=== PATIENT | female | born 1970 | race Caucasian/White ===

== ENCOUNTER 2024-05-08 05:21 | Emergency (ER) | payer SELFPAY ==
[2024-05-08 05:22] VITALS: BP 177/109
[2024-05-08] MEDS: PROTONIX IV 40 MG IV (05:41)
--- NOTE | 2024-05-08 05:41 | ED.GENMED ---
History of Present Illness
General
Chief Complaint: Blood Pressure Problem
Source: patient
Exam Limitations: none
Time Seen by Provider: 05/08/24 05:32
Nursing documentation reviewed up to this point in time: agreed with
Travel History
Have you had any contact with someone who has COVID-19?: No
Do you have any symptoms of coronavirus? Fever > 100 degrees, chills, cough, shortness of breath, sore throat, loss of taste or smell, muscle aches, or headache?: No
History of Present Illness
History of Present Illness:
53 yo female presents to elevated blood pressure. When she lays down she gets reflux. She drinks 16 beers a day.
Past History
Past History
ED Past Medical History: GERD, HTN and Hypercholesterolemia
ED Past Surgical History: Other (Nephrectomy)
Social History
Alcohol: Chronic alcoholic
Drug: None
Living: alone
Review of Systems
Review of Systems
Allergies reviewed?: Yes
All Other Systems: Not applicable
Constitutional: Reports no symptoms
EENT: Reports no symptoms
Respiratory: Reports no symptoms
Cardiac: Reports no symptoms
ABD/GI: Reports no symptoms
: Reports no symptoms
Musculoskeletal: Reports no symptoms
Skin: Reports no symptoms
Neurological: Reports no symptoms
Endocrine: Reports no symptoms
Hematologic/Lymphatic: Reports no symptoms
Psychiatric: Reports no symptoms
Phy Exam
Physical Exam
Physical Exam:
Physical Exam
General: Afebrile, blood pressure 177/109
Neck: supple. no meningeal signs. normal posterior pharynx
Heart: s1/s2 regular rate and rhythm, no murmur. equal radial
pulses.
HEENT: Pupils equal round reactive to light, EOMI
Lungs: no acute respiratory distress. clear bilaterally
Abdomen: normal bowel sounds. not tender. no CVAT
Neuro: alert and oriented. no focal neurological deficits cranial nerves II through XII intact
Skin: no rash
Psychiatric: well kept. interactive and cooperative
Extremities: no edema. no calf tenderness. negative homans. good distal pulses
Course
Orders/Labs/Results
Orders:
Orders
05/08/24 05:37
EKG- Treatment ONCE
Ondansetron Injectable [Zofran] 4 mg IV NOW STA
Pantoprazole [Protonix IV] 40 mg IV NOW STA
Quetiapine Fumarate [Seroquel] 50 mg PO NOW STA
05/08/24 05:39
Electrocardiogram (*1) Urgent
Reason for Study: Hypertension, Benign
05/08/24 05:44
Complete Blood Count/With Diff Urgent
Comprehensive Metabolic Panel Urgent
05/08/24 06:03
HydrALAZINE [Apresoline] 10 mg IV NOW STA
05/08/24 06:15
Labetalol HCl [Trandate] 20 mg IV NOW STA
Abnormal Lab Results
05/08/24
05:44
RBC 4.11 L 10^6/uL
(4.20-5.40)
MCH 34.5 H pg
(27.0-31.0)
Abs Immat Gran (auto) 0.1 H 10^3/uL
(0-0.05)
Absolute Neuts (auto) 9.0 H 10^3/uL
(1.4-6.5)
Absolute Lymphs (auto) 1.1 L 10^3/uL
(1.2-3.4)
Immature Gran % 0.6 H %
(0-0.5)
Neutrophils % 84.0 H %
(42.2-75.2)
Lymphocytes % 10.5 L %
(20.5-51.1)
Chloride 111 H mmol/L
(98-107)
Creatinine 1.1 H mg/dL
(0.6-1.0)
AST 42 H U/L
(14-36)
Albumin 5.2 H g/dl
(3.5-5.0)
05/08/24 05:44
05/08/24 05:44
Vital Signs
Initial and Last Documented VS:
Initial Vital Signs
Temp Pulse Resp BP Pulse Ox
98.1 F 91 19 177/109 95
05/08/24 05:22 05/08/24 05:22 05/08/24 05:22 05/08/24 05:22 05/08/24 05:22
Last Documented Vital Signs
Temp Pulse Resp BP Pulse Ox
98.1 F 84 19 182/124 95
05/08/24 05:22 05/08/24 06:19 05/08/24 05:34 05/08/24 06:19 05/08/24 05:22
MDM/Problems Addressed
Differential Diagnosis Includes:
Hypertension, renal insufficiency
MDM/Problems Addressed:
53-year-old female with hypertensive urgency. No signs of renal failure. GFR 59. Blood pressure improved after labetalol. Stable for incarceration.
Chronic conditions affecting care: HTN
Acute Exacerbation and/or Progression of Chronic Illness: HTN
*Pulse Oximetry
Patient hypoxic: no
*EKG
Interpreted by ED Provider?: Yes
EKG Intrepretation Date: 05/08/24
EKG Intrepretation Time: 06:12
Interpretation: abnormal
Comparison EKG: no comparison EKG present
Heart Rate: 75
Rate: normal
Rhythm: sinus
[place]: normal axis
Interval: normal interval
QRS Pattern: normal QRS
Ischemia: no ischemia
*Managed Care Liaison Interpretation
Rate: normal
Interpretation: normal
Heart Rate: 77
Rhythm: sinus
*Critical Care Note
Total Time (30-74mins, 75-104mins- exclusive of procedures): 30
comment:
Critical care statement: A total of 30 minutes of critical care time was provided for this patient. This includes management of unstable vital signs, evaluation of the patient at bedside, reviewing the patient's pertinent medical records, discussion
with consultants, review of old EKGs and review of pertinent medical records. This time with separate from time utilized to perform the aforementioned documented procedures
Patient Management
Social determinants of health affecting care: Living situation and Substance abuse
Escalation/DeEscalation of care consider admission/obs:
Admit not indicated
ED Attending Note
-
Portions of this chart may have been created with voice recognition software.� Occasional wrong word or��sound alike� substitutions may have occurred due to the inherent limitations of voice recognition software.
Discharge Plan
Departure
Patient with high blood pressure during this ER visit?: Yes
Condition: Good
Discharge Problem:
Hypertensive urgency
Instructions: High Blood Pressure (DC)
Prescriptions:
New
labetalol 100 mg tablet
100 mg PO BID Qty: 60 0RF
Interventions
Interventions:
*Risk Screen - Suicide Last Done: 05/08/24 05:22
*General Assessment Last Done: 05/08/24 05:22
*Neglect/Abuse Screening Last Done: 05/08/24 05:22
ED- Fall Risk Assessment Last Done: 05/08/24 05:30
*ED COVID-19 Vaccine History Last Done: 05/08/24 05:22
ED- Cardiac Assessment Last Done: 05/08/24 05:30
ED- Neurological Assessment Last Done: 05/08/24 05:30
ED- Pulmonary Assessment Last Done: 05/08/24 05:30
Discharge Date and Time
Print Language: LUXEMBOURGER
[2024-05-08] MEDS: ZOFRAN 4 MG IV (05:42)
[2024-05-08 05:50] LABS: % Basophils 0.5 % (0-2); % Eosinophils 0.4 % (0-6); % Immature Granulocytes 0.6 % (0-0.5); % Lymphocytes 10.5 % (20.5-51.1); Absolute Basophils 0.1 10^3/uL (0-0.2); Absolute Immature Granulocytes 0.1 10^3/uL (0-0.05); Absolute Lymphocytes 1.1 10^3/uL (1.2-3.4); Absolute Monocytes 0.4 10^3/uL (0.1-0.6); Hematocrit 38.5 % (37.0-47.0); Hemoglobin 14.2 g/dL (12.0-16.0); Mean Corp Hgb Conc. 36.9 g/dL (33.0-37.0); Mean Corpuscular Hgb 34.5 pg (27.0-31.0); Mean Corpuscular Volume 93.7 fL (81.0-99.0); Nucleated Red Blood Cells % 0 %; Platelet Count 170 10^3/uL (130-400); Red Blood Cell Count 4.11 10^6/uL (4.20-5.40); Red Cell Dist. Width 12.3 % (11.5-14.5); White Blood Cell Count 10.7 10^3/uL (4.8-10.8)
[2024-05-08] MEDS: SEROQUEL 50 MG PO (06:00)
[2024-05-08 06:05] LABS: ALT (SGPT) 20 U/L (0-35); AST (SGOT) 42 U/L (14-36); Albumin 5.2 g/dl (3.5-5.0); Alkaline Phosphatase 87 U/L (38-126); Blood Urea Nitrogen 14 mg/dl (7-17); Calcium 9.6 mg/dl (8.4-10.2); Carbon Dioxide 23 mmol/L (22-30); Chloride 111 mmol/L (98-107); Glucose 98 mg/dl (70-99); Potassium 4.5 mmol/L (3.5-5.1); Sodium 145 mmol/L (135-145); Total Bilirubin 0.7 mg/dl (0.2-1.3); eGFR 59.34
[2024-05-08] MEDS: TRANDATE 20 MG IV (06:19)
[2024-05-08 06:35] VITALS: BP 169/114
[2024-05-08 07:00] VITALS: BP 154/100
== END 2024-05-08 08:11 | disposition home or self-care (01) ==
LOC: EMR 05:21
PROVIDERS: EMERGENCY PHYSICIAN Emergency Medicine
DX: I16.0 Hypertensive urgency (principal); K21.9 Gastro-esophageal reflux disease without esophagitis; I10 Essential (primary) hypertension; E78.00 Pure hypercholesterolemia, unspecified; Z90.5 Acquired absence of kidney
CPT/HCPCS: 99283; 96374; 96375; 80053; 85025; 93005

== ENCOUNTER 2025-11-01 19:50 | Emergency (ER) | payer OTHER, SELFPAY ==
[2025-11-01 19:53] VITALS: BP 120/63
[2025-11-01 20:00] VITALS: BP 120/63
[2025-11-01 20:12] LABS: Hematocrit 31.9 % (37.0-47.0); Hemoglobin 11.2 g/dL (12.0-16.0); Mean Corp Hgb Conc. 35.1 g/dL (33.0-37.0); Mean Corpuscular Volume 93.8 fL (81.0-99.0); Nucleated Red Blood Cells % 0 %; Platelet Count 127 10^3/uL (130-400); Red Cell Dist. Width 11.9 % (11.5-14.5)
[2025-11-01 20:29] LABS: ALT (SGPT) 118 U/L (0-35); AST (SGOT) 261 U/L (14-36); Albumin 4.2 g/dl (3.5-5.0); Alkaline Phosphatase 83 U/L (38-126); Blood Urea Nitrogen 22 mg/dl (7-17); Calcium 9.1 mg/dl (8.4-10.2); Carbon Dioxide 30 mmol/L (22-30); Chloride 100 mmol/L (98-107); Glucose 128 mg/dl (70-99); Potassium 2.8 mmol/L (3.5-5.1); Sodium 134 mmol/L (135-145); Total Protein 6.6 g/dl (6.3-8.2); eGFR > 60.00
[2025-11-01 21:00] VITALS: BP 99/69
[2025-11-01 22:00] VITALS: BP 97/66
--- NOTE | 2025-11-01 23:03 | ED.GENMED ---
History of Present Illness
General
Chief Complaint: Change in Mental Status
Time Seen by Provider: 11/01/25 20:14
History of Present Illness
History of Present Illness:
54-year-old female presents with correctional facility officers from [facility] due to poor responsiveness. Has been incarcerated for less than an hour and was reportedly exhibiting signs of alcohol withdrawal thus was
administered diphenhydramine, Seroquel, and Klonopin before becoming less responsive. On arrival to the ED she is somnolent and with sonorous respirations, minimally responsive.
Past History
Past History
ED Past Medical History: GERD, HTN and Hypercholesterolemia
ED Past Surgical History: Other (Nephrectomy)
Social History
Alcohol: Chronic alcoholic
Drug: None
Living: alone
Review of Systems
Review of Systems
Allergies reviewed?: Yes
All Other Systems: ROS reviewed and negative except as documented in HPI and ROS
Phy Exam
Physical Exam
Physical Exam:
GEN: Somnolent, groans to painful tactile stimuli and withdraws to pain
HEENT: Oral mucosa moist, no scleral icterus
Cardiac: Regular rate
Lung: No respiratory distress, no tachypnea
MSK: No gross deformity or injuries
Skin: Good color, no pallor or jaundice, no rashes
Neuro: Somnolent, withdraws to pain, moves all extremities
Psych: Calm, cooperative
Course
Orders/Labs/Results
Orders:
Orders
11/01/25 20:02
Alcohol Urgent
Complete Blood Count/With Diff Urgent
Comprehensive Metabolic Panel Urgent
11/01/25 20:51
Add On- LAB Urgent
Tests Added?: alcohol
11/01/25 21:28
CT Head W/o Iv Contrast Urgent
Comment:
Reason For Exam: altered mental status
11/01/25 21:54
Fentanyl, Urine Urgent
Urine Drug Abuse Screen Urgent
Date Specimen was Collected: 11/01/25
Time Specimen was Collected: 21:39
11/01/25 23:07
Potassium Chloride [KCl] 80 meq PO NOW STA
Abnormal Lab Results
11/01/25 11/01/25
20:02 21:54
RBC 3.40 L 10^6/uL
(4.20-5.40)
Hgb 11.2 L g/dL
(12.0-16.0)
Hct 31.9 L %
(37.0-47.0)
MCH 32.9 H pg
(27.0-31.0)
Plt Count 127 L 10^3/uL
(130-400)
Absolute Lymphs (auto) 0.7 L 10^3/uL
(1.2-3.4)
Neutrophils % 75.8 H %
(42.2-75.2)
Lymphocytes % 13.3 L %
(20.5-51.1)
Sodium 134 L mmol/L
(135-145)
Potassium 2.8 L mmol/L
(3.5-5.1)
BUN 22 H mg/dl
(7-17)
Glucose 128 H mg/dl
(70-99)
AST 261 H U/L
(14-36)
ALT 118 H U/L
(0-35)
Ur Tricyclics Screen Positive H
(Negative)
Ur Amphetamines Screen Positive H
(Negative)
U Methamphetamines Scrn Positive H
(Negative)
U Benzodiazepines Scrn Positive H
(Negative)
Urine Cocaine Screen Positive H
(Negative)
U Marijuana (THC) Screen Positive H
(Negative)
11/01/25 20:02
11/01/25 20:02
Vital Signs
Initial and Last Documented VS:
Initial Vital Signs
Temp Pulse Resp BP Pulse Ox
97.8 F 68 12 120/63 96
11/01/25 19:53 11/01/25 19:53 11/01/25 19:53 11/01/25 19:53 11/01/25 19:53
Last Documented Vital Signs
Temp Pulse Resp BP Pulse Ox
97.8 F 58 18 97/66 97
11/01/25 19:53 11/01/25 22:30 11/01/25 22:30 11/01/25 22:00 11/01/25 23:05
MDM/Problems Addressed
MDM/Problems Addressed:
Patient's somnolence is most likely due to polysubstance intoxication. Alcohol is 0. CT of the head shows no acute pathology and her mental status did gradually improve in the ED. Given oral potassium due to hypokalemia, suitable for discharge
back to corrections
*Pulse Oximetry
SaO2: 97
Oxygen Mode of Delivery: Room air
Patient hypoxic: no
*Critical Care Note
Total Time (30-74mins, 75-104mins- exclusive of procedures): Not Applicable
ED Attending Note
-
Portions of this chart may have been created with voice recognition software.� Occasional wrong word or��sound alike� substitutions may have occurred due to the inherent limitations of voice recognition software.
Discharge Plan
Departure
Patient Disposition: Home (Routine Discharge)
Date of Disposition: 11/01/25
Time of Disposition: 23:05
Patient with high blood pressure during this ER visit?: No
Discharge Problem:
Polysubstance abuse, Hypokalemia
Instructions: Altered Mental Status (DC)
Prescriptions:
No Action
quetiapine [Seroquel] 25 mg Tablet
25 mg PO DAILY
ascorbic acid (vitamin C) [Vitamin C] 1,000 mg Tablet
1,000 mg PO BID
thiamine HCl (vitamin B1) 100 mg Tablet
100 mg PO DAILY
Theragen Tablet
1 tab PO DAILY
diphenhydramine HCl [Benadryl] 25 mg Capsule
25 mg PO BID
clonazepam 2 mg Tablet
2 mg PO DIRECTED
Rx Instructions:
2mg bid for 2 days then 1mg tid for 2 days then 1mg bid for 2 days then 0.5mg bid for 2 days then 0.5mg daily for 2 days
folic acid 1 mg Tablet
1 mg PO DAILY
quetiapine [Seroquel] 50 mg Tablet
50 mg PO HS
magnesium oxide 400 mg magnesium Tablet
400 mg PO DAILY
Referrals:
[facility] [Family Provider, General]
Interventions
Interventions:
*Risk Screen - Suicide Last Done: 11/01/25 19:53
*General Assessment Last Done: 11/01/25 19:53
*Neglect/Abuse Screening Last Done: 11/01/25 19:53
*ED COVID-19 Vaccine History Last Done: 11/01/25 22:41
*ED Influenza Vaccine History Last Done: 11/01/25 22:41
[facility] Fall Risk Assessment Tool Last Done: 11/01/25 19:59
ED- Cardiac Assessment Last Done: 11/01/25 22:37
ED- Neurological Assessment Last Done: 11/01/25 22:37
ED-Psychological Assessment Last Done: 11/01/25 22:37
ED- Pulmonary Assessment Last Done: 11/01/25 22:37
Discharge Date and Time
Print Language: SAMMARINESE
[2025-11-01] MEDS: KCL 80 MEQ PO (23:12)
[2025-11-01 23:21] VITALS: BP 111/78
== END 2025-11-01 23:39 | disposition home or self-care (01) ==
LOC: EMR 19:50
PROVIDERS: Physician Assistant; EMERGENCY PHYSICIAN Emergency Medicine
DX: F19.10 Other psychoactive substance abuse, uncomplicated (principal); E87.6 Hypokalemia; E78.00 Pure hypercholesterolemia, unspecified; I10 Essential (primary) hypertension; Z90.5 Acquired absence of kidney
CPT/HCPCS: 99284; 70450; 80053; 80306; 80307; 82077; 85025